=== PATIENT | female | born 1990 | race Caucasian/White ===

== ENCOUNTER 2017-02-11 05:35 | Inpatient (IN) ==
[2017-02-11] MEDS ORDERED: LIDOCAINE 1% (10mg/ml) 2mL INJ PF SDV ID PRN (05:53)
[2017-02-11] MEDS ORDERED: METHYLERGONOVINE 0.2 MG/ML INJECTION IM PRN (05:53)
[2017-02-11] MEDS ORDERED: CALCIUM CARBONATE Chewable 500mg TABLET PO PRN (05:53)
[2017-02-11] MEDS ORDERED: CARBOPROST 250 MCG/ML INJECTION IM PRN (05:53)
[2017-02-11] MEDS ORDERED: ACETAMINOPHEN 500 MG TABLET PO PRN (05:53)
[2017-02-11] MEDS ORDERED: MAG-AL + SIM ORAL LIQUID 30ml PO PRN (05:53)
[2017-02-11] MEDS ORDERED: AMPICILLIN 2 GM in NS 100 ML IV ONE (06:00)
[2017-02-11] MEDS: LR 1,000 ML IV PRN ×2 (06:09→07:25)
[2017-02-11] MEDS ORDERED: NALOXONE 0.4 MG/ML INJECTION IVP PRN (06:44)
[2017-02-11] MEDS ORDERED: ONDANSETRON 4 MG/2 ML INJECTION IVP PRN (06:44)
[2017-02-11] MEDS ORDERED: DiphenhydrAMINE 50 MG/ML INJECTION IVP PRN (06:44)
[2017-02-11] MEDS ORDERED: ROPIVACAINE 1% 10MG/ML INJ 200 MG, SUFentanil 50 MCG in NS 100 ML EPI PRN (06:44)
--- NOTE | 2017-02-11 06:44 | Anesthesia Preoperative Report ---
Anesthesia Epidural/Spinal Rec - Date and Time Date: 02/11/17 Preoperative Diagnosis: G3:P2 /40 weeks Procedure: Labor Epidural Plan: Epidural - Vital Signs /Para: G: P: - Medictaions & Allergies Inpatient Medications: Current Medications Acetaminophen (Tylenol) 500 - 1,000 mg PO Q4H PRN PRN Reason: Pain Al Hydroxide/Mg Hydroxide (Maalox Plus) 30 ml PO Q3H PRN PRN Reason: Indigestion Calcium Carbonate (Tums) 500 - 1,000 mg PO Q2H PRN PRN Reason: Indigestion Carboprost Tromethamine (Hemabate) 250 mcg IM O PRN PRN Reason: .Downtime Ampicillin Sodium 1 gm/ Sodium (Chloride) 100 mls @ 200 mls/hr IV Q4H MICHELLE Lactated Ringer's (Lactated Ringers) 1,000 mls @ 1,000 mls/hr IV .Q1H PRN PRN Reason: as directed Last Admin: 02/11/17 06:09 Dose: 1,000 mls/hr Lidocaine HCl (Xylocaine-Mpf 1% Vial) 0.2 mg ID O PRN PRN Reason: IV Start Methylergonovine Maleate (Methergine) 0.2 mg IM O PRN Misoprostol (Cytotec) 800 mcg WA ONCE PRN Allergies/Adverse Reactions: Allergies Allergy/AdvReac Type Severity Reaction Status Date / Time NKDA Allergy Unknown Uncoded 06/21/16 07:15 - Home Medications Home Medications: Home Medications Medication Instructions Recorded Confirmed Type Multivitamin [Multivitamins] 1 tab PO DAILY #0 11/03/14 History Amoxicillin 1 tab PO TID #21 06/20/16 History - Medical History Respiratory: Reports: Asthma Other History: Reports: Now - Surgical History Anesthesia Reactions: None Hx Family Anesthesia Reaction: No History of Motion Sickness: No - Social History Second Hand Exposure: No Substance Use Type: does not use Alcohol Intake Frequency: does not drink - Pertinent Findings Lab Data: CBC and BMP 02/11/17 06:05 EKG Rhythm: Normal Sinus Rhythm - Physical Exam Respiratory Exam: lungs clear Cardiovascular Exam: regular rate and rhythm - Airway Assessment Mallampati Score: II TMD: 3 Fingerbreadths Neck Extension: good Overall Assessment: may be difficult intubation - ASA ASA Score: 2 - Discussion Discussion: Discussed risks/options/alternatives of anesthesia and questions answered. Patient consents. Nursing pain assessment noted. Anesthesia Discussion: spouse Attestation Statement: Prior to the delivery of any anesthetic medication, I examined the patient, developed the plan, obtained the patient's consent and discussed the risk and benefits of the procedure with the patient/guardian.
[2017-02-11 09:14] VITALS: BMI 28.3
[2017-02-11] MEDS ORDERED: SALINE FLUSH 10ml SYRINGE IVF PRN (09:15)
[2017-02-11] MEDS ORDERED: HYDROCORTISONE 2.5% CREAM 30gm RECTALLY PRN (09:15)
[2017-02-11] MEDS ORDERED: OXYTOCIN DRIP 30 UNIT/500 ML ML IV SCH (09:15)
[2017-02-11] MEDS ORDERED: DiphenhydrAMINE 25 MG CAPSULE PO PRN (09:15)
[2017-02-11] MEDS: IBUPROFEN 800 MG TABLET PO PRN ×2 (09:18→19:47)
[2017-02-11] MEDS ORDERED: AMPICILLIN 1 GM in NS 100 ML IV SCH (10:30)
[2017-02-11] MEDS: DOCUSATE CALCIUM 240 MG CAPSULE PO SCH (13:49)
--- NOTE | 2017-02-11 14:23 | Labor and Delivery Note ---
DATE OF DELIVERY 02/11/2017 SUMMARY OF DELIVERY Grace is a 26-year-old 3, para 2, at 40 weeks gestational age who presented to [facility] in spontaneous labor dilated to 4 cm, with a bulging bag. She received an epidural. On my arrival, she was completely dilated. Her membranes were ruptured artificially returning clear fluids. She pushed for approximately an hour to rotate baby from OP with asynclitism to PATRICK. She then had a spontaneous vaginal delivery of a viable male . Apgars 7, 9. Weight 3608 grams. Name: "Migue." There was a nuchal cord x1 that was reduced. Baby was vigorous at delivery, so he was placed on mom's abdomen and the cord clamping was delayed for more than two minutes. The placenta delivered spontaneously. She had a small first-degree perineal laceration that was repaired. She also had a bleeding left periurethral laceration, so a [id number] of 3-0 chromic was placed on this and good hemostasis was noted. Mom and baby tolerated the delivery well. MTDD
[2017-02-11] MEDS: HYDROCODONE/APAP 5mg/325mg TABLET PO PRN ×2 (16:06→22:08)
--- NOTE | 2017-02-11 22:52 | Anesthesia Postoperative Note ---
- Date and Time Date: 02/11/17 Time: 22:52 - Status Patient Participated in Evaluation: Patient Participated in Person Vital Signs: Temperature 98.4 F 02/11/17 16:15 Pulse Rate 84 02/11/17 16:15 Respiratory Rate 16 02/11/17 16:15 Blood Pressure 117/69 02/11/17 16:15 Pulse Oximetry 98 02/11/17 16:15 Oxygen Delivery Method Room Air Respiratory Function: Airway Patent Cardiovascular Function: Regular Pulse EKG Rhythm: Normal Sinus Rhythm Mental Status: Alert and Oriented Pain Intensity: 0 Hydration: Taking PO Fluids Complications During Recover: None Apparent - Follow-Up Instructions Instructions: Per Surgeon
[2017-02-12] MEDS: HYDROCODONE/APAP 5mg/325mg TABLET PO PRN ×3 (02:24→20:08)
[2017-02-12] MEDS: IBUPROFEN 800 MG TABLET PO PRN ×2 (05:19→16:21)
[2017-02-12] MEDS: DOCUSATE CALCIUM 240 MG CAPSULE PO SCH ×2 (07:56→09:46)
--- NOTE | 2017-02-12 09:43 | OB/GYN Progress Note ---
OB-PP Progress Note - General PPD1 Maternal Group B Strep: Positive Maternal blood type: AB+ Maternal Rubella Status: Immune - Subjective Date: 02/12/17 Lochia: Minimal Pain: contolled Voiding: voiding - Objective Vital Signs: Last Vital Signs Temp 98.1 F 02/12/17 01:00 Pulse 92 02/12/17 05:00 Resp 16 02/12/17 05:00 BP 121/76 02/12/17 05:00 Pulse Ox 98 02/12/17 05:00 Abdomen: fundus firm, non-tender Extremities: non-tender - Assessment Assessment: , GBS positive - Plan Plan: routine care Expected date of discharge: 02/13/17
[2017-02-13] MEDS: IBUPROFEN 800 MG TABLET PO PRN (00:44)
[2017-02-13 02:32] VITALS: O2SAT 98
[2017-02-13] MEDS: HYDROCODONE/APAP 5mg/325mg TABLET PO PRN (05:55)
[2017-02-13 06:08] VITALS: BP 119/79; PULSE 68; RESP 16; TEMP 97.6
--- NOTE | 2017-02-13 08:13 | OB/GYN Progress Note ---
OB-PP Progress Note - General PPD1, PPD2 Maternal Group B Strep: Positive Maternal blood type: AB+ Maternal Rubella Status: Immune - Subjective Date: 02/13/17 Lochia: Moderate Pain: contolled Voiding: voiding Nausea or Vomiting Present: No - Objective Vital Signs: Last Vital Signs Temp 97.6 F 02/13/17 05:50 Pulse 68 02/13/17 05:50 Resp 16 02/13/17 05:50 BP 119/79 02/13/17 05:50 Pulse Ox 98 02/12/17 20:10 Urine Output: good General: alert and oriented Respiratory: non-labored Abdomen: fundus firm, non-tender Extremities: non-tender Edema: none - Assessment Assessment: SP, , GBS positive - Plan Plan: routine care, discharge home Expected date of discharge: 02/13/17
--- NOTE | 2017-02-13 08:17 | Discharge Instructions ---
Discharge Plan - Med Rec/Dispo Prescriptions: New Hydrocodone/APAP 5/325 [Lee 5/325] 1 - 2 tab PO Q4H PRN #30 tablet PRN Reason: Pain Ibuprofen [Motrin] 800 mg PO Q8H PRN #30 tablet PRN Reason: Pain No Action Formula Tablet 1 tab PO DAILY Discharge Instructions/Outpatient Orders: Final Provider Discharge Instructions Location: Determined By Patient - Disposition 01 Discharged Home, Self-Care
== END 2017-02-13 09:58 | disposition home or self-care (01) | DRG 775 ==
LOC: OBOBS 05:35 → MC 05:36
PROVIDERS: ADMIT Obstetrics & Gynecology; ATTEND Obstetrics & Gynecology